=== PATIENT | female | born 1980 | race Caucasian/White ===

== ENCOUNTER 2018-03-08 04:48 | Inpatient (IN) | payer OTHER ==
[2018-03-08] MEDS ORDERED: Ondansetron INJ* 2 MG/ML VIAL IV PRN (05:42)
[2018-03-08] MEDS ORDERED: Ondansetron INJ* 2 MG/ML VIAL ONE ×2 (05:47→12:12)
[2018-03-08 05:52] LABS: Urine Appearance Cloudy; Urine Blood 3+ (Negative); Urine Ketones Trace (Negative); Urine Protein 2+(100 mg/dL) (Negative); Urine Red Blood Cell 3+(>10/hpf) (Absent); Urine Specific Gravity 1.021 (1.010-1.030); Urine Urobilinogen Negative (Negative); Urine White Blood Cell Trace(0-5/hpf) (Absent)
[2018-03-08 06:50] LABS: Urine Color Red
--- NOTE | 2018-03-08 07:36 | PN ---
L&D Outpatient: Visit - Reproductive Information Estimated Due Date: 03/08/18 Gestational Age: 40 Weeks and 0 Days : 6 Para: 4 - Reason for Visit Visit Reason: Pt c/o ctxs since 1:30am. She also notes some vaginal bleeding. No LOF. Good FM. - Antepartal Records Antepartal Record: Reviewed, Complicated by: - prior placenta previa - resolved per PNC sono - Patient History Patient History Significant: Yes Patient History Significant For: h/o heroin abuse - on subutex Review of Systems Constitutional: Uncomfortable CV Complaint: No Respiratory: Shortness of Breath: No Gastrointestinal: Nausea Genitourinary: Bleeding, No Dysuria, No Leaking Fluid Musculoskeletal: Back Pain, Contractions Movement: Normal L&D Outpatient: Exam Lab Values - Entire Visit: Laboratory Tests 03/08/18 03/08/18 03/08/18 04:33 05:07 05:07 Urine Color Red A Urine Appearance Cloudy Urine pH 6.0 Ur Specific [place] 1.021 Urine Protein 2+(100 mg/dl) A Urine Ketones Trace A Urine Blood 3+ A Urine Nitrate Negative Urine Bilirubin Negative Urine Urobilinogen Negative Ur Leukocyte Esterase Trace A Urine WBC (Auto) Trace(0-5/hpf) Urine RBC (Auto) 3+(>10/hpf) A Ur Squamous Epith Cells Present A Urine Bacteria Absent Urine Glucose Negative Urine Opiates Screen None detected Ur Barbiturates Screen None detected Ur Phencyclidine Scrn None detected Ur Amphetamines Screen None detected U Benzodiazepines Scrn None detected Urine Cocaine Screen None detected U Cannabinoids Screen None detected Blood Type O Negative Antibody Screen Negative - Abdominal Exam Abdomen Exam: Non-Tender - Membranes Membrane Status: Intact - Ultrasound/Biophysical Profile Ultrasound Status: Not Done EFM Findings - External Monitor Findings Baseline Heart Rate: 120 External Monitor Findings: Accelerations Present, No Pattern of Variable or Late Decelerations, Variability Moderate, Baseline Stable Contractions: Regular - q2-3 L&D Outpatient: Asses/Plan Assessment: @37.4wks with possible early labor vs false labor. Some vaginal bleeding. Cat 1 FHT Plan: Continue Observation - recheck in a few hours. Monitor bleeding.
[2018-03-08] MEDS ORDERED: Nalbuphine* 10 MG/ML 1 ML VIAL IV PRN (09:34)
[2018-03-08] MEDS ORDERED: Promethazine INJ(RESTRICTED)* 25 MG/ML 1 ML VIAL IV ONE (09:40)
[2018-03-08] MEDS ORDERED: ceFOXitin 2 GM IVPREMIX* 2 GM/50 ML BAG IVPB ONE (11:29)
[2018-03-08] MEDS ORDERED: Sodium Citrate/Citric Acid* 15 ML UDC PO ONE (11:29)
--- NOTE | 2018-03-08 11:41 | HP ---
General Information - Reason for Visit 37 y/o multiparous lady with prior ceasrean section x 2 at 37 4/7 weeks EGA, presented to with vaginal bleeding and contractions to r/o labor. After a period of observation patients contractions intensified and her cervix changed from (1cm/thick /posterior/minus 3 station) to (3cm/80% efface/ midposition/-1 station/cephalic) consistent with labor. - General Information Maternal Age: 37 Grav: 6 Para: 4 SAB: 1 IEA: 0 Estimated Due Date: 03/25/18 Determined By: Early Ultrasound Gestational Age in Weeks/Days: 37 4/7 Maternal Blood Type and Rh: O Negative - Results this Serology/RPR Result: Non-Reactive Rubella Result: Immune HBsAg Result: Negative HIV Result: Negative Past Medical History Delivery History: See Records Pertinent Past Medical History: See Records - Obesity BMI 41, Substance Abuse disrder, Depression, GERD Pertinent Past Surgical History: See Records - Ceasarean section X 2, Tonsillectomy Pertinent Family History: See Records - Antepartal Records Antepartal Records: Reviewed, Complicated by: - Substance abuse on subutex, prior section, cigarette smoker. Review of Systems Constitutional: Uncomfortable CV Complaint: No Respiratory: Shortness of Breath: No Gastrointestinal: No Nausea/Vomiting, Normal Bowel Movement Genitourinary: Bleeding, No Dysuria, No Leaking Fluid Musculoskeletal: No Complaint, No Epigastric Pain, Contractions Neurological: No Headache, No Visual Changes Movement: Normal Exam Allergies/Adverse Reactions: Allergies No Known Allergies Allergy (Verified 03/08/18 03:26) Temp 98.8 BP 121/55 P 67 RR 20 Lab Values - Entire Visit: Laboratory Tests 03/08/18 03/08/18 03/08/18 04:33 05:07 05:07 Urine Color Red A Urine Appearance Cloudy Urine pH 6.0 Ur Specific [place] 1.021 Urine Protein 2+(100 mg/dl) A Urine Ketones Trace A Urine Blood 3+ A Urine Nitrate Negative Urine Bilirubin Negative Urine Urobilinogen Negative Ur Leukocyte Esterase Trace A Urine WBC (Auto) Trace(0-5/hpf) Urine RBC (Auto) 3+(>10/hpf) A Ur Squamous Epith Cells Present A Urine Bacteria Absent Urine Glucose Negative Urine Opiates Screen None detected Ur Barbiturates Screen None detected Ur Phencyclidine Scrn None detected Ur Amphetamines Screen None detected U Benzodiazepines Scrn None detected Urine Cocaine Screen None detected U Cannabinoids Screen None detected Blood Type O Negative Antibody Screen Negative - Measurements Height: 5 ft 6 in Weight: 260 lb Weight in lbs: [id number] Body Mass Index (BMI): 41.9 Pre- Weight: 250 lb Weight Gained This : 10 lbs and 0 ozs - Exam Breast: Breast Exam Deferred CVA: No CVA Tenderness Extremities: No Edema Heart: Normal Rhythm/Heart Sounds HEENT: No Significant Findings Lungs: Clear Bilaterally Rectal: Rectal Exam Deferred Reflexes: DTR 2+ Thyroid: No Thyromegaly - Abdominal Exam Abdomen Exam: Non-Tender, Fundal Height Consistent with Dates - Ultrasound/Biophysical Profile Ultrasound Status: Not Done Biophysical Profile: Normal Reactive NST Targeted Exam Findings See L&D Outpatient Visit Provider Note for Findings: N/A Cervical Exam: 3cm Effacement: 80% Station: -1 Presenting Part: Vertex Membrane Status: Intact Bleeding/Discharge: Bloody Show EFM Findings - External Monitor Findings Baseline Heart Rate: 140 External Monitor Findings: Accelerations Present Contractions: Regular, Moderate - q 2-3 min apart. Assessment/Plan - Assessment Advanced maternal age, multiparous, Morbidly obese, substance abuse/cigarette smoker, prior Cesaren section x2 in labor, desires permanent surgical sterilization. - Obstetrical Risk Factors Obstetrical Risk Factors: Obesity, Previous C/Section in Labor, Substance Abuse , Tobacco Use - Plan Plan: IV Hydration, Expedite C/S Delivery - Bilateral tubal ligation - Date/Time of Admission Date of Admission: 03/08/18 Time of Admission: 11:50
[2018-03-08] MEDS ORDERED: OXYTOCIN* 10 UNITS/ML 1 ML VIAL ONE (12:12)
[2018-03-08] MEDS ORDERED: Dexamethasone IV* 4 MG/ML 1 ML (4 MG) ONE (12:12)
[2018-03-08] MEDS ORDERED: PROCHLORPERAZINE INJ 5 MG/ML 2 ML VIAL IV PRN (13:58)
[2018-03-08] MEDS ORDERED: Naloxone* 0.4 MG/ML 1 ML VIAL IV PRN (13:58)
[2018-03-08] MEDS ORDERED: Acetaminophen IV 1GM/100ML * 1,000 MG/100 ML VIAL IVPB ONE (13:58)
[2018-03-08] MEDS ORDERED: Ketorolac INJ* 30 MG/ML 1 ML VIAL IV PRN (13:58)
[2018-03-08] MEDS ORDERED: diPHENhydraMINE IV* 50 MG/ML 1 ml VIAL (BENADRYL) IV PRN (13:58)
[2018-03-08] MEDS ORDERED: fentaNYL* 50 MCG/ML 2 ML VIAL (100 MCG VIAL) IV PRN (13:58)
[2018-03-08] MEDS ORDERED: Lidocaine 2% EPI 1:200000 MPF*10-20 ML VIAL ONE (14:38)
[2018-03-08] MEDS ORDERED: Bupivacaine 0.5% SDV PF* 30ML VIAL ONE (14:38)
[2018-03-08] MEDS ORDERED: Phenylephrine IV* 40 MCG/ML 10 ML SYRINGE ONE (14:39)
[2018-03-08] MEDS ORDERED: Lidocaine 2% PF * 5 ML VIAL ONE (14:39)
[2018-03-08] MEDS ORDERED: Dibucaine 1% 28.35 GM TUBE PR PRN (14:50)
[2018-03-08] MEDS ORDERED: oxyCODONE/Acetamin 5/325 MG* TAB PO PRN ×2 (14:50)
[2018-03-08] MEDS ORDERED: Glycerin ADULT SUPP PR PRN (14:50)
[2018-03-08] MEDS ORDERED: Zolpidem TAB* 5 MG PO PRN (14:50)
[2018-03-08] MEDS ORDERED: Witch Hazel PAD* JAR TOPICAL PRN (14:50)
[2018-03-08] MEDS ORDERED: Buprenorphine TAB* 8 MG ONE (14:58)
[2018-03-08] MEDS: Simethicone TAB* 80 MG TAB.CHEW PO SCH ×2 (17:40→20:58)
[2018-03-08] MEDS: oxyCODONE TAB* 5 MG TAB PO PRN (17:40)
[2018-03-08] MEDS: Sertraline* 50 MG TAB PO SCH (20:58)
[2018-03-08] MEDS: Ibuprofen TAB* 600 MG PO PRN (20:58)
[2018-03-08] MEDS: Docusate CAP* 100 MG PO SCH (20:58)
[2018-03-08] MEDS: Gabapentin CAP(*) 400 MG PO SCH (20:59)
[2018-03-08] MEDS: Acetaminophen TAB* 325 MG PO PRN (20:59)
[2018-03-08] MEDS: Buprenorphine TAB* 2 MG TAB.SL SL SCH (21:58)
[2018-03-09] MEDS: oxyCODONE TAB* 5 MG TAB PO PRN ×2 (01:09→08:42)
[2018-03-09] MEDS: Acetaminophen TAB* 325 MG PO PRN ×4 (05:54→18:08)
[2018-03-09] MEDS: Ibuprofen TAB* 600 MG PO PRN ×3 (05:54→18:08)
[2018-03-09 06:27] LABS: ABS Basophils 0 10^3/ul (0-0.2); ABS Eosinophils 0.1 10^3/ul (0-0.6); ABS Lymphocytes 1.9 10^3/ul (1.0-4.8); ABS Monocytes 0.9 10^3/ul (0-0.8); ABS Neutrophils 8.9 10^3/ul (1.5-7.7); ABS Nucleated RBC 0 10^3/ul; Eosinophil % 0.5 % (0-6); Hematocrit 31 % (35-47); Hemoglobin 10.4 g/dl (12.0-16.0); Lymphocyte % 16.4 % (25-47); Mean Corpuscular HGB Conc 34 g/dl (31-36); Mean Corpuscular Hemoglobin 31 pg (27-31); Mean Corpuscular Volume 90 fL (80-97); Mean Platelet Volume 9.1 um3 (7.4-10.4); Nucleated Red Blood Cells % 0.1; Platelet Count 180 10^3/ul (150-450); Red Blood Count 3.41 10^6/ul (4.00-5.40); Red Cell Distribution Width 15 % (10.5-15); White Blood Count 11.8 10^3/ul (3.5-10.8)
[2018-03-09] MEDS: Buprenorphine TAB* 8 MG SL SCH ×2 (08:41→14:20)
[2018-03-09] MEDS: Simethicone TAB* 80 MG TAB.CHEW PO SCH ×4 (08:41→21:45)
[2018-03-09] MEDS: Docusate CAP* 100 MG PO SCH ×3 (08:41→21:45)
[2018-03-09] MEDS ORDERED: Ferrous Gluconate TAB* 324 MG TAB PO SCH (09:00)
[2018-03-09] MEDS: Gabapentin CAP(*) 400 MG PO SCH ×2 (09:01→21:49)
[2018-03-09] MEDS ORDERED: Nicotine Inhaler* 10 MG AMP INH PRN (09:56)
[2018-03-09] MEDS ORDERED: Mouth Piece, Nicotine* 1 EACH CARTRIDGE INH PRN (09:56)
[2018-03-09] MEDS: RHO D Immune Globulin (HUMAN)* 300 MCG = 1,500 I.U. INJ IM ONE ×2 (14:24→17:21)
[2018-03-09] MEDS: Buprenorphine TAB* 2 MG TAB.SL SL SCH (21:45)
[2018-03-09] MEDS: Sertraline* 50 MG TAB PO SCH (21:45)
[2018-03-10] MEDS: Acetaminophen TAB* 325 MG PO PRN ×3 (04:32→21:51)
[2018-03-10] MEDS: Ibuprofen TAB* 600 MG PO PRN ×3 (04:32→17:58)
[2018-03-10] MEDS: Buprenorphine TAB* 8 MG SL SCH ×2 (08:24→14:23)
[2018-03-10] MEDS: Simethicone TAB* 80 MG TAB.CHEW PO SCH ×3 (08:25→21:51)
[2018-03-10] MEDS: Docusate CAP* 100 MG PO SCH ×3 (09:30→21:51)
[2018-03-10] MEDS: Gabapentin CAP(*) 400 MG PO SCH ×2 (09:31→21:51)
[2018-03-10] MEDS: Buprenorphine TAB* 2 MG TAB.SL SL SCH (21:50)
[2018-03-10] MEDS: Sertraline* 50 MG TAB PO SCH (21:51)
[2018-03-11] MEDS: Ibuprofen TAB* 600 MG PO PRN ×3 (06:17→18:47)
[2018-03-11] MEDS: Docusate CAP* 100 MG PO SCH ×3 (08:16→21:36)
[2018-03-11] MEDS: Simethicone TAB* 80 MG TAB.CHEW PO SCH ×3 (08:16→21:36)
[2018-03-11] MEDS: Acetaminophen TAB* 325 MG PO PRN ×3 (08:16→18:46)
[2018-03-11] MEDS: Buprenorphine TAB* 8 MG SL SCH ×2 (08:17→13:47)
[2018-03-11] MEDS: Gabapentin CAP(*) 400 MG PO SCH ×2 (08:43→21:35)
[2018-03-11 21:24] VITALS: BP 141/73
[2018-03-11] MEDS: Buprenorphine TAB* 2 MG TAB.SL SL SCH (21:33)
[2018-03-11] MEDS: Sertraline* 50 MG TAB PO SCH (21:34)
--- NOTE | 2018-03-16 22:43 | OP ---
DATE OF OPERATION: 03/08/18 - ROOM #102 DATE OF : 76. SURGEON: Dr. Arizmendi. RESEARCH CHIEF ENGINEER: Dr. Castillo. ANESTHESIA: Spinal. PRE-OP DIAGNOSIS: at 37 weeks; prior section x2 in labor, desires permanent sterilization. POST-OP DIAGNOSIS: at 37 weeks; prior section x2 in labor, desires permanent sterilization. OPERATIVE PROCEDURE: Repeat low-transverse section and bilateral fimbriectomy. ESTIMATED BLOOD LOSS: 600 cc. SPECIMENS SENT TO PATHOLOGY: Cord blood along with bilateral tubal fimbriae. FLUIDS: She received 2600 cc of IV crystalloid fluids. URINE OUTPUT: Clear. FINDINGS: Delivery of a male infant weighing 7 pounds 5 ounces with Apgars of 8 and 8. The placenta was grossly intact. The uterus, adnexa, bowel, and bladder were within normal limits, and there were no complications. DESCRIPTION OF PROCEDURE: The patient was taken to the operating room, where she was identified. She was placed on the operating table, where a spinal anesthetic was obtained without difficulty. She was then placed in the supine position with a leftward tilt, prepped and draped in the normal sterile fashion. A Pfannenstiel skin incision was made with a knife and carried through to the underlying layer of fascia. The fascia was nicked in the midline and extended laterally with curved Peraza scissors. The fascia was then grasped superiorly and inferiorly with Sumi clamps, and dissected off sharply from the rectus muscle. The rectus muscle was in the midline sharply and bluntly. The peritoneum was identified, grasped with pickups and entered sharply with Metzenbaum scissors, and this was then extended laterally, bluntly. A bladder blade was inserted into the patient's abdomen and a bladder flap was created using Metzenbaum scissors over which the bladder blade was then reinserted. A low transverse incision was made with a knife, extended laterally with bandage scissors. The amniotic sac was ruptured. The 's head was then grasped and delivered atraumatically. The rest of the infant's body was then delivered. The cord was clamped and cut and the infant was handed off to the awaiting machine shop specialist. Cord bloods were obtained and sent to pathology. The placenta was removed manually. The uterus was then exteriorized and cleared of all clots and debris using moist laparotomy sponges. The uterine incision was then closed using 0 Polysorb suture in a running locked fashion with a second imbricating layer of 0 Polysorb suture with good hemostasis noted. The uterus was then returned to the patient's abdomen. The gutters were then cleared of all clots and debris using moist laparotomy sponges. At this point, all the sponges and instruments were removed from the patient's abdomen. We then proceeded to identify the fallopian tubes bilaterally and a bilateral fimbriectomy was performed using 3- 0 Polysorb suture in a usual fashion and portions of the left and right tubes were sent to pathology. At this point, all the instruments again were removed from the patient's abdomen. The peritoneum was then closed using 3-0 Polysorb suture in a running fashion. The fascia was closed using 0 Polysorb suture in a running fashion and the skin was closed with a 4-0 Monocryl subcuticular stitch. The patient tolerated the procedure well. Sponge, lap, and needle counts were correct x2. She was then transferred to the recovery room area in stable condition. [id number]/[facility] #: [id number] GAVINO
== END 2018-03-11 18:00 | disposition home or self-care (01) | DRG 540 ==
LOC: MCHOBOUT 04:48 → MCHOB 11:22
PROVIDERS: ADMIT Obstetrics & Gynecology; ATTEND Obstetrics & Gynecology
PROC: 0UB70ZZ Excision of Bilateral Fallopian Tubes, Open Approach (ICD-10-PCS; 2018-03-08)
PROC: 4A1HXCZ Monitoring of Products of Conception, Cardiac Rate, External Approach (ICD-10-PCS; 2018-03-08)
PROC: 10D00Z1 Extraction of Products of Conception, Low, Open Approach (ICD-10-PCS; principal; 2018-03-08 12:24)
DX: O34.211 Maternal care for low transverse scar from previous cesarean delivery (principal); O99.324 Drug use complicating childbirth; Z68.41 Body mass index [BMI] 40.0-44.9, adult; O99.214 Obesity complicating childbirth; O99.334 Smoking (tobacco) complicating childbirth; O99.344 Other mental disorders complicating childbirth; F32.9 Major depressive disorder, single episode, unspecified; F17.210 Nicotine dependence, cigarettes, uncomplicated; Z3A.37 37 weeks gestation of pregnancy; Z30.2 Encounter for sterilization; Z37.0 Single live birth; F19.10 Other psychoactive substance abuse, uncomplicated; E66.01 Morbid (severe) obesity due to excess calories
CPT/HCPCS: 36415; 80307; 81003; 81015; 85025; 85461; 86850; 86900; 86901; 87086; 88302; 99283; A9270-GY; J0694; J1100; J1885; J2300; J2405; J2550; J2590; J2790